=== PATIENT | female | born 1965 | race Caucasian/White ===

== ENCOUNTER → 2016-06-12 | Outpatient (CLI) | payer BC ==
--- NOTE | 2016-06-12 15:48 | MA ---
Screening Digital Mammogram With iCAD Analysis Clinical Indications: Routine screening. Technique: Standard cephalocaudal and mediolateral oblique projections were obtained. This examinatio n was processed by the iCAD computer aided detection system. Comparison: May 2015, April 2014, September 2013, February 2013, January 2012, January 2011, 2009, September 2008. Breast density: Type C; Heterogeneously dense. Findings: CAD was reviewed. There is a possible developing focal asymmetry in the lower medial right breast. No suspicious microcalcifications are seen. The left breast is stable in appearance. Impression: Possible developing right breast asymmetry requires further evaluation, BI-RADS 0 Recommendation: Spot compression assessment of the right breast with ultrasound suggested if the abno rmality persists on diagnostic evaluation. [facility] will send a result letter to the patient. Dense breast parenchyma diminishes mammographic sensitivity. Negative mammography should not preclude additional workup of a clinically suspicious finding. The patient's information is entered into a reminder system with a target due date for her next mammo gram.
== END ==
LOC: BMCIMAGING 14:05
DX: Z12.31 Encounter for screening mammogram for malignant neoplasm of breast (principal)
CPT/HCPCS: G0202

== ENCOUNTER → 2016-06-16 | Outpatient (CLI) | payer BC ==
--- NOTE | 2016-06-16 14:10 | MA ---
Right Digital Diagnostic Mammograms Indication: Possible developing asymmetry lower inner right breast. Comparison: Screening mammograms dating back to December 2009. Breast density: Type C. Technique: True lateral, off angle MLO, and spot compressed CC and MLO views of the inner right breas t. Processed by iCAD analysis. Findings: The focal asymmetry disperses on the additional views and the background dispersed parenchy ma has a similar pattern to the 2010 and 2009 mammograms. Impression: Normal superimposed fibroglandular tissue in the inner right breast. Recommendation: Resume routine annual screening in June 2017 unless otherwise clinically indicate d. BI-RADS 2: Benign Finding. Comment: The results and recommendations were conveyed to the patient by the auxiliary engineer at the time of study completion.
== END ==
LOC: BMCIMAGING 12:23
DX: Z12.39 Encounter for other screening for malignant neoplasm of breast (principal); R92.2 Inconclusive mammogram
CPT/HCPCS: G0206

== ENCOUNTER → 2017-06-15 | Outpatient (CLI) | payer BC | LOC: BMCIMAGING 08:29 | PROVIDERS: ATTEND Obstetrics & Gynecology | DX: Z12.31 Encounter for screening mammogram for malignant neoplasm of breast (principal) ==

== ENCOUNTER → 2017-06-18 | Outpatient (CLI) | payer BC | LOC: BMCIMAGING 10:32 | PROVIDERS: ATTEND Obstetrics & Gynecology | DX: R92.8 Other abnormal and inconclusive findings on diagnostic imaging of breast (principal) ==

== ENCOUNTER → 2018-06-17 | Outpatient (CLI) | payer BC | LOC: BMCIMAGING 08:50 | PROVIDERS: ATTEND Obstetrics & Gynecology | DX: Z12.31 Encounter for screening mammogram for malignant neoplasm of breast (principal) ==

== ENCOUNTER → 2018-06-20 | Outpatient (CLI) | payer BC | LOC: BMCIMAGING 11:10 | PROVIDERS: ATTEND Obstetrics & Gynecology | DX: R92.0 Mammographic microcalcification found on diagnostic imaging of breast (principal) ==

== ENCOUNTER → 2018-09-24 | Outpatient (CLI) | payer BC | LOC: BMCIMAGING 10:47 | PROVIDERS: ATTEND Obstetrics & Gynecology | DX: N60.02 Solitary cyst of left breast (principal) ==